=== PATIENT | female | born 1950 | race Caucasian/White ===

== ENCOUNTER → 2017-05-12 | Outpatient (CLI) | payer BC ==
[~2017-05-12] MED LIST: ANSHCCR/ TOP; BIOTCAP2 PEG; COEN1CAP7 PO; KETO2CRE14 TOP; LSN5 PO; OMEG10007 PO; POLY1SOL6 OP; VITA400C15 PO; ZOLE5INJ IV
--- NOTE | 2017-05-12 15:55 | MAMMOGRAPHY REPORT ---
BILATERAL DIGITAL SCREENING MAMMOGRAM TOMOSYNTHESIS WITH CAD: 05/12/2017 CLINICAL HISTORY: Routine screening. Patient has no complaints. TECHNIQUE: Breast tomosynthesis in addition to standard 2D mammography was performed. Current study was also evaluated with a Computer Aided Detection (CAD) system. COMPARISON: Comparison is made to exams dated: 04/10/2015 mammogram, 05/09/2016 mammogram, 04/05/2014 m ammogram, 10/06/2013 mammogram, 10/06/2013 ultrasound, and 09/19/2013 mammogram - [facility]. BREAST COMPOSITION: There are scattered areas of fibroglandular density in both breasts. FINDINGS: There is a newly visualized 3.7 mm focal asymmetry in the upper outer posterior left breas t. It is unclear whether this is within the breast tissue or represents a skin lesion. Definitive c haracterization with spot compression tomosynthesis views, with consideration for placing additional mole markers, is recommended. Possible ultrasound may also be needed. No other suspicious mass, architectural distortion or cluster of microcalcifications is seen. IMPRESSION: ACR BI-RADS CATEGORY 0: INCOMPLETE EVALUATION: NEED ADDITIONAL IMAGING EVALUATION The 3.7 mm focal asymmetry in the upper outer left breast needs additional evaluation. The patient will be called to schedule an appointment. Approximately 10% of breast cancers are not detected with mammography. A negative mammographic report should not delay biopsy if a clinically suggestive mass is present. Litzy Longo M.D. ay/:05/12/2017 15:32:17 Double Spindle Shaper Operator: Lisa BROOKS(Caryn)(Carol), [facility] letter sent: Addl Imaging 0 BI-RADS Code: ACR BI-RADS Category 0: Incomplete Evaluation: Need Additional Imaging Evaluation
== END | disposition home or self-care (01) ==
LOC: C.MAMM 11:30
PROVIDERS: ATTEND Family Medicine
DX: Z12.31 Encounter for screening mammogram for malignant neoplasm of breast (principal); N64.89 Other specified disorders of breast

== ENCOUNTER → 2017-05-21 | Outpatient (CLI) | payer BC ==
--- NOTE | 2017-05-21 14:35 | MAMMOGRAPHY REPORT ---
UNILATERAL LEFT DIGITAL DIAGNOSTIC MAMMOGRAM TOMOSYNTHESIS: 05/21/2017 CLINICAL HISTORY: Callback from screening mammogram for left breast asymmetry. TECHNIQUE: Breast tomosynthesis in addition to standard 2D mammography was performed. Spot compress ion left MLO 2-D and tomosynthesis images were obtained. COMPARISON: Comparison is made to exams dated: 05/12/2017 mammogram, 05/09/2016 mammogram, 04/10/2015 m ammogram, 04/05/2014 mammogram, 10/06/2013 mammogram, and 09/19/2013 mammogram - [facility]. BREAST COMPOSITION: There are scattered areas of fibroglandular density in the left breast. FINDINGS: Circular markers were placed on skin moles and a spot compression MLO view was obtained. The new focal asymmetry in the left upper outer quadrant described on the recent screening mammogram is marked with a mole marker and is consistent with a skin mole. Additionally, the mass is located o n the first slice in the tomosynthesis stack, also confirming a skin location. No suspicious mass or other suspicious abnormality is evident. IMPRESSION: ACR BI-RADS CATEGORY 2: BENIGN The left upper outer quadrant asymmetry is benign and corresponds with a skin mole. There is no mamm ographic evidence of malignancy. A 1 year screening mammogram is recommended. The patient has been v erbally notified of the results. Approximately 10% of breast cancers are not detected with mammography. A negative mammographic report should not delay biopsy if a clinically suggestive mass is present. Gretta Dunn M.D. ah/:05/21/2017 11:49:47 Bread Jockey: Jaimie BROOKS(Caryn)(M), [facility] letter sent: Normal 1/2 BI-RADS Code: ACR BI-RADS Category 2: Benign
== END | disposition home or self-care (01) ==
LOC: C.MAMM 10:35
PROVIDERS: ATTEND Family Medicine
DX: N64.89 Other specified disorders of breast (principal)